=== PATIENT | female | born 1995 | race American Indian/Alaskan Native ===

== ENCOUNTER 2020-08-31 03:14 | Emergency (ER) | payer SELFPAY ==
--- NOTE | 2020-08-31 06:10 | Emergency Department Report ---
ED General Adult HPI - General Chief complaint: Upper Respiratory Infection Stated complaint: CONGESTION/HEADACHE Time Seen by Provider: 08/31/20 05:40 Source: patient Mode of arrival: Ambulatory Limitations: No Limitations - History of Present Illness Initial comments: 25-year-old female patient presents to the emergency department with complaints of nasal congestion, sneezing, sore throat, and sinus pressure starting 5 days ago. Patient states she is visiting from out of town and lives in [place]. No known sick contacts. No current steroid or antibiotic use. Used Xyzal with limited relief. Denies neck stiffness, rash, chest pain, shortness of breath, wheezing, vomiting, diarrhea, dizziness, syncope. Denies all other complaints at this time - Related Data Previous Rx's Medication Instructions Recorded Last Taken Type Cetirizine HCl [ZyrTEC 10mg cap] 10 mg PO DAILY #10 capsule 08/31/20 Unknown Rx Fluticasone [Flonase] 1 spray NS QDAY #1 bottle 08/31/20 Unknown Rx Allergies Allergy/AdvReac Type Severity Reaction Status Date / Time No Known Allergies Allergy Unverified 08/31/20 03:22 ED Review of Systems ROS: Stated complaint: CONGESTION/HEADACHE Other details as noted in HPI Other: GENERAL: Negative for fever. ENT: Positive for nasal congestion, sneezing, sore throat, sinus pressure. CARDIOVASCULAR: Negative for chest pain. PULMONARY: Negative for shortness of breath. GASTROINTESTINAL: Negative for abdominal pain. MUSCULOSKELETAL: Negative for back pain. NEUROLOGICAL: Negative for headache. INTEGUMENTARY: Negative for rash. ED Past Medical Hx - Past Medical History Previous Medical History?: No - Surgical History Past Surgical History?: No - Medications Home Medications: Home Medications Medication Instructions Recorded Confirmed Last Taken Type Cetirizine HCl [ZyrTEC 10mg cap] 10 mg PO DAILY #10 capsule 08/31/20 Unknown Rx Fluticasone [Flonase] 1 spray NS QDAY #1 bottle 08/31/20 Unknown Rx ED Physical Exam - General Limitations: No Limitations - Other Other exam information: General: Awake and alert. No acute distress. Head: Atraumatic, normocephalic. Bilateral frontal and maxillary sinus tenderness. Eyes: EOMI. Pupils are equal and round. Normal sclera and conjunctiva. ENT: Nasal congestion noted. Oral mucosa is moist. Normal pharyngeal exam. Neck: Supple. No lymphadenopathy. Pulmonary: No respiratory distress. Clear to auscultation bilaterally. Cardiac: Regular rate and rhythm. Pulses are palpable and equal bilaterally. No lower extremity cyanosis or edema. Skin: Warm and dry. No rashes. Abdomen: Soft, non-tender, non-protuberant. No guarding, rigidity, or rebound. Bowel sounds are normal. No organomegaly or masses noted. Back: Normal alignment. No CVA tenderness. Extremities: Symmetrical. Full range of motion intact. Neurological: Alert and oriented, appropriately interactive, no focal deficits. Psych: Cooperative. Appropriate mood and affect. Speech is evenly metered. Thoughts are logically construed. ED Course Vital Signs 08/31/20 03:21 Temperature 98.0 F Pulse Rate 74 Respiratory 16 Rate Blood Pressure 114/80 O2 Sat by Pulse 98 Oximetry ED Medical Decision Making - Medical Decision Making Differential diagnosis including but not limited to: allergic rhinitis, sinusitis, pharyngitis, otitis media Patient presents to the emergency department with signs/symptoms suggestive of allergic rhinitis. She is afebrile, hemodynamically stable, no hypoxia, no respiratory distress. No clinical indication for further diagnostic work-up on an emergent basis at this time. Patient will be discharged home with appropr iate symptomatic treatment and referred to primary care provider for close outpatient follow-up. Patient expressed understanding and is agreeable to plan of care. Strict return precautions provided. Repeat exam is unremarkable and benign. History, exam, diagnostic testing, and current condition do not suggest worrisome pathology to warrant further testing, continued ED treatment, admission, or surgical evaluation at this point. Given the low probability of a significant medical illness, it would be more likely to result in harm than benefit to perform further testing at this stage. Discussed findings, presumptive diagnosis, need for follow-up and specific signs/symptoms that should prompt immediate return to the emergency department. Instructions were explained in detail to the patient in addition to giving written discharge information. Patient expressed understanding and was given the opportunity to ask questions, all of which were satisfactorily answered prior to discharge home. BILLING/CODING: This patient encounter does not represent a certified medical emergency. Critical care attestation.: If time is entered above; I have spent that time in minutes in the direct care of this critically ill patient, excluding procedure time. ED Disposition Clinical Impression: Allergic rhinitis Qualifiers: Allergic rhinitis trigger: unspecified Allergic rhinitis seasonality: unspecified Qualified Code(s): J30.9 - Allergic rhinitis, unspecified Disposition: DC-01 TO HOME OR SELFCARE Is pt being admited?: No Does the pt Need Aspirin: No Condition: Stable Instructions: Allergic Rhinitis, Adult, [id number] Additional Instructions: Take Tylenol every 4 hours and Motrin every 8 hours as needed for pain. Use Flonase as directed. Take Cetirizine as directed. Exposure to warm humidified air may help relieve congestion. Avoid environmental triggers, which may worsen your symptoms. Take Benadryl at nighttime as needed. Rest. Drink plenty of fluids. Follow-up with primary care provider this week. Call today to schedule an appointment. See referral information below. Return to the emergency department immediately for new or worsening symptoms. Prescriptions: Fluticasone [Flonase] 1 spray NS QDAY #1 bottle Cetirizine HCl [ZyrTEC 10mg cap] 10 mg PO DAILY #10 capsule Referrals: [facility] [Provider Group] - 3-5 Days Time of Disposition: 06:11
[2020-08-31 07:57] VITALS: BP 121/71
== END 2020-08-31 07:57 | disposition home or self-care (01) ==
LOC: ED 03:14
DX: J30.9 Allergic rhinitis, unspecified (principal); Z79.899 Other long term (current) drug therapy
CPT/HCPCS: 99282

== ENCOUNTER 2020-10-31 09:33 | Emergency (ER) | payer SELFPAY ==
[2020-10-31 10:39] VITALS: BP 112/80
--- NOTE | 2020-10-31 10:50 | Emergency Department Report ---
ED Eye Problem HPI - General Chief complaint: Allergic Reaction Stated complaint: BURNING EYES/ALLERGIC REACTION Time Seen by Provider: 10/31/20 10:47 Source: patient Mode of arrival: Ambulatory Limitations: No Limitations - History of Present Illness Initial comments: Patient is a 25-year-old female presents emergency room complaints of bilateral eye irritation that began a couple days ago. She states it feels like a burning irritation. She states that she has frequent watering of the eyes. She denies anything getting into the eyes. She denies any foreign bodies. She denies any vision changes. She denies any drainage. She denies anyone else with the same symptoms. She states that when she moved to [place] she did develop allergies. No other past medical history. No allergies to medications. - Related Data Previous Rx's Medication Instructions Recorded Last Taken Type Cetirizine HCl [ZyrTEC 10mg cap] 10 mg PO DAILY #10 capsule 08/31/20 Unknown Rx Fluticasone [Flonase] 1 spray NS QDAY #1 bottle 08/31/20 Unknown Rx Ketotifen Fumarate [Zaditor] 1 drop OP BID 7 Days #1 bottle 10/31/20 Unknown Rx Loratadine 10 mg PO DAILY #30 tablet 10/31/20 Unknown Rx Allergies Allergy/AdvReac Type Severity Reaction Status Date / Time No Known Allergies Allergy Unverified 08/31/20 03:22 ED Review of Systems ROS: Stated complaint: BURNING EYES/ALLERGIC REACTION Other details as noted in HPI Comment: All other systems reviewed and negative ED Past Medical Hx - Medications Home Medications: Home Medications Medication Instructions Recorded Confirmed Last Taken Type Cetirizine HCl [ZyrTEC 10mg cap] 10 mg PO DAILY #10 capsule 08/31/20 Unknown Rx Fluticasone [Flonase] 1 spray NS QDAY #1 bottle 08/31/20 Unknown Rx Ketotifen Fumarate [Zaditor] 1 drop OP BID 7 Days #1 bottle 10/31/20 Unknown Rx Loratadine 10 mg PO DAILY #30 tablet 10/31/20 Unknown Rx ED Physical Exam - General Limitations: No Limitations General appearance: alert, in no apparent distress - Head Head exam: Present: atraumatic, normocephalic - Eye Eye exam: Present: normal appearance, PERRL, EOMI. Absent: conjunctival injection, periorbital swelling, periorbital tenderness Pupils: Present: normal accommodation - ENT ENT exam: Present: mucous membranes moist - Respiratory Respiratory exam: Absent: respiratory distress, accessory muscle use - Neurological Exam Neurological exam: Present: alert, oriented X3 - Psychiatric Psychiatric exam: Present: normal affect, normal mood - Skin Skin exam: Present: warm, dry, intact ED Course Vital Signs 10/31/20 10:36 Temperature 98.4 F Pulse Rate 71 Respiratory 16 Rate Blood Pressure 112/80 [Left] O2 Sat by Pulse 100 Oximetry ED Medical Decision Making - Medical Decision Making Patient is a 25-year-old female presents emergency room complaints of bilateral eye irritation that began a couple days ago. She states it feels like a burning irritation. She states that she has frequent watering of the eyes. She denies anything getting into the eyes. She denies any foreign bodies. She denies any vision changes. She denies any drainage. She denies anyone else with the same symptoms. She states that when she moved to [place] she did develop allergies. No other past medical history. No allergies to medications. Vitals are normal. On exam: No conjunctival injection, PERRLA, EOMI, no periorbital edema or ecchymosis or erythema. Symptoms appear likely consistent with allergic conjunctivitis/allergies. No signs of bacterial or viral conjunctivitis at this time. Patient given prescription for medications. Advised patient Please use medication as prescribed. Follow-up with chief sales officer if symptoms are not improving. Return to emergency room for any new or worsening symptoms. Critical care attestation.: If time is entered above; I have spent that time in minutes in the direct care of this critically ill patient, excluding procedure time. ED Disposition Clinical Impression: Allergic conjunctivitis Qualifiers: Laterality: bilateral Qualified Code(s): H10.13 - Acute atopic conjunctivitis, bilateral Disposition: HOME / SELF CARE / HOMELESS Is pt being admited?: No Does the pt Need Aspirin: No Condition: Stable Instructions: Allergic Conjunctivitis, Adult, [id number] Additional Instructions: Please use medication as prescribed. Follow-up with chief sales officer if symptoms are not improving. Return to emergency room for any new or worsening symptoms. Prescriptions: Loratadine 10 mg PO DAILY #30 tablet Ketotifen Fumarate [Zaditor] 1 drop OP BID 7 Days #1 bottle Referrals: MELIZA WILDE MD [Staff Physician] - 2-3 Days [facility] [Provider Group] - 2-3 Days Forms: Work/School Release Form(ED) Time of Disposition: 10:49 Print Language: [id number]
== END 2020-10-31 11:04 | disposition home or self-care (01) ==
LOC: ED 09:33
DX: H10.13 Acute atopic conjunctivitis, bilateral (principal); Z79.899 Other long term (current) drug therapy
CPT/HCPCS: 99281